=== PATIENT | female | born 1960 | race Caucasian/White ===

== ENCOUNTER 2017-12-25 19:59 | Emergency (ER) | payer BC ==
[2017-12-25 20:15] VITALS: BP 145/83
[2017-12-25] MEDS ORDERED: Ketorolac INJ* 60 MG/2 ML VIAL IM ONE (20:41)
[2017-12-25] MEDS ORDERED: Cyclobenzaprine TAB* 10 MG PO ONE (20:44)
--- NOTE | 2017-12-25 20:53 | UC ---
Back Pain HPI - HPI Summary HPI Summary: Complains of left lower back pain radiating into left buttock and posterior left leg starting last night. Pain worse with sitting, worse in the middle the night. Denies urinary retention, incontinence, trauma, fever, cough, sore throat, CP, SOB, N/V/D, abdominal pain, change in urine or BM, vaginal symptoms. Med history is HTN, DM. - History of Current Complaint Chief Complaint: UCBackPain Stated Complaint: BACK,HIP,LEG PAIN Time Seen by Provider: 12/25/17 20:24 Hx Obtained From: Patient Onset/Duration: Sudden Onset, Lasting Hours Timing: Constant Severity Initially: Mild Severity Currently: Moderate Pain Intensity: 6 Pain Scale Used: 0-10 Numeric Back Pain: Radiates To Character: Sharp, Aching Aggravating Factor(s): Other - Sitting Associated Signs And Symptoms: Positive: Negative - Allergies/Home Medications Allergies/Adverse Reactions: Allergies Allergy/AdvReac Type Severity Reaction Status Date / Time adhesive tape Allergy Severe HIVES, Verified 12/25/17 20:16 BLISTERS Sulfa (Sulfonamide Allergy Unknown Unknown Verified 12/25/17 20:16 Antibiotics) Reaction Details Home Medications: Home Medications Cholecalciferol TAB* [Vitamin D TAB*] 12/25/17 [History] Ibuprofen TAB* [Advil TAB*] 800 mg PO PRN 12/25/17 [History] Lisinopril TAB* [Prinivil TAB*] 10 mg PO DAILY 12/25/17 [History Confirmed 12/25] Potassium 99 mg PO DAILY 12/25/17 [History Confirmed 12/25/17] Sitagliptin/Metform 50/500(NF) [Janumet 50/500 (NF)] 12/25/17 [History Confirmed 12/25/17] Vitamin B Complex CAP* [B Complex CAP*] 1 cap PO DAILY 12/25/17 [History Confirmed 12/25/17] amLODIPine TAB* [Norvasc 5 mg TAB*] 20 mg PO DAILY 12/25/17 [History Confirmed 12/25/17] PMH/Surg Hx/FS Hx/Imm Hx Endocrine History: Diabetes Cardiovascular History: Hypertension - Surgical History Surgical History: Yes Surgery Procedure, Year, and Place: TWO FOOT SURGERIES, CHOLECYSTECTOMY - Family History Known Family History: Positive: Diabetes - Social History Alcohol Use: None Substance Use Type: None Smoking Status (MU): Never Smoked Tobacco Review of Systems Constitutional: Negative Skin: Negative Eyes: Negative ENT: Negative Respiratory: Negative Cardiovascular: Negative Gastrointestinal: Negative Genitourinary: Negative Motor: Negative Neurovascular: Negative Neurological: Negative Psychological: Negative Is Patient Immunocompromised?: No - DM All Other Systems Reviewed And Are Negative: Yes Physical Exam - Summary Physical Exam Summary: Tenderness to palpation along left gluteus and left posterior thigh. PMS intact distally. Triage Information Reviewed: Yes Appearance: Well-Appearing Vital Signs: Initial Vital Signs Temp 97.4 F 12/25/17 20:10 Pulse 58 12/25/17 20:10 Resp 16 12/25/17 20:10 BP 145/83 12/25/17 20:10 Pulse Ox 98 12/25/17 20:10 Vital Signs Reviewed: Yes Eye Exam: Normal ENT Exam: Normal Dental Exam: Normal Neck exam: Normal Respiratory Exam: Normal Cardiovascular Exam: Normal Abdominal Exam: Normal Musculoskeletal Exam: Normal Neurological Exam: Normal Psychological Exam: Normal Skin Exam: Normal Back Pain Course/Dx - Course Course Of Treatment: Complains of left lower back pain radiating into left buttock and posterior left leg starting last night. Pain worse with sitting, worse in the middle the night. Denies urinary retention, incontinence, trauma, fever, cough, sore throat, CP, SOB, N/V/D, abdominal pain, change in urine or BM , vaginal symptoms. Med history is HTN, DM. Exam:Tenderness to palpation along left gluteus and left posterior thigh. PMS intact distally. Vital signs normal. Symptoms consistent with sciatica. Started on Flexeril and Toradol here in the ED. Rx for Flexeril and ibuprofen. - Differential Dx/Diagnosis Provider Diagnoses: sciatica Discharge - Sign-Out/Discharge Documenting (check all that apply): Patient Departure - Discharge Plan Condition: Stable Disposition: HOME Prescriptions: Cyclobenzaprine TAB* [Flexeril 10 MG TAB*] 10 mg PO TID PRN #12 tab PRN Reason: Pain Ibuprofen TAB* [Motrin TAB* 800 MG] 800 mg PO Q6H 4 Days #16 tab Patient Education Materials: Sciatica (ED) Referrals: Chelo Mina [Primary Care Provider] - Additional Instructions: Follow-up with primary care. - Billing Disposition and Condition Condition: STABLE Disposition: Home
== END 2017-12-25 21:25 | disposition home or self-care (01) ==
LOC: UCEAST 19:59
DX: M54.42 Lumbago with sciatica, left side (principal); E11.9 Type 2 diabetes mellitus without complications; Z79.84 Long term (current) use of oral hypoglycemic drugs; I10 Essential (primary) hypertension; Z88.2 Allergy status to sulfonamides; Z91.048 Other nonmedicinal substance allergy status
CPT/HCPCS: 96372; 99202; A9270-GY; G0463; J1885

== ENCOUNTER 2018-05-16 15:00 | Emergency (ER) | payer BC ==
[2018-05-16 15:13] VITALS: BP 142/103
--- NOTE | 2018-05-16 16:23 | UC ---
Respiratory Complaint HPI - HPI Summary HPI Summary: 58-year-old female presents with concerns of persistent cough and shortness of breath. She was diagnosed with pneumonia at the [facility] urgent care 1 week ago. She was treated with a course of azithromycin, placed on a Medrol Dosepak , and provided an albuterol inhaler as needed. She states that she completed the antibiotics as prescribed as well as the Medrol Dosepak. She states her breathing improved greatly when she started the steroids however became increasingly worse as she tapered the dose down and then stopped. Notes cough is also worsens slightly becoming less productive and much "tighter". Denies fever, chills, chest pain, palpitations, wheezing, abdominal pain, nausea, or vomiting. - History of Current Complaint Chief Complaint: UCRespiratory Stated Complaint: URI Time Seen by Provider: 05/16/18 15:58 Hx Obtained From: Patient Hx Last Menstrual Period: na Pain Intensity: 8 - Allergies/Home Medications Allergies/Adverse Reactions: Allergies Allergy/AdvReac Type Severity Reaction Status Date / Time adhesive tape Allergy Severe HIVES, Verified 05/16/18 15:12 BLISTERS Sulfa (Sulfonamide Allergy Unknown Unknown Verified 05/16/18 15:12 Antibiotics) Reaction Details Home Medications: Home Medications Albuterol HFA INHALER* [Ventolin HFA Inhaler*] 1 puff INH Q6H PRN 05/16/18 [ History Confirmed 05/16/18] Fluconazole 150 MG TAB* [Diflucan 150 MG TAB*] 150 mg PO ONCE 05/16/18 [History Confirmed 05/16/18] PMH/Surg Hx/FS Hx/Imm Hx Endocrine History: Diabetes Cardiovascular History: Hypertension - Surgical History Surgical History: Yes Surgery Procedure, Year, and Place: TWO FOOT SURGERIES, CHOLECYSTECTOMY - Family History Known Family History: Positive: Unknown, Diabetes - Social History Alcohol Use: None Substance Use Type: None Smoking Status (MU): Never Smoked Tobacco Review of Systems All Other Systems Reviewed And Are Negative: Yes Constitutional: Negative: Fever, Chills Eyes: Negative: Drainage, Eye Redness ENT: Negative: Sore Throat, Ear Ache, Nasal Discharge, Sinus Congestion, Sinus Pain/Tenderness Respiratory: Positive: Shortness Of Breath, Cough Cardiovascular: Negative: Palpitations, Chest Pain Gastrointestinal: Negative: Abdominal Pain, Vomiting, Diarrhea, Nausea Genitourinary: Positive: Negative Musculoskeletal: Positive: Negative Neurological: Positive: Negative Is Patient Immunocompromised?: No Physical Exam - Summary Physical Exam Summary: GENERAL APPEARANCE: Well developed, well nourished, alert and cooperative, and appears to be in no acute distress. EYES: Conjunctiva clear. No drainage. Vision is grossly intact. EARS: External auditory canals and tympanic membranes clear, hearing grossly intact. NOSE: No nasal congestion or discharge. THROAT: Oral cavity and pharynx normal. No inflammation, swelling, exudate, or lesions. Teeth and gingiva in good general condition. NECK: Neck supple, non-tender without lymphadenopathy. CARDIAC: Normal S1 and S2. No S3, S4 or murmurs. Rhythm is regular. There is no peripheral edema, cyanosis or pallor. Extremities are warm and well perfused. Capillary refill is less than 2 seconds. LUNGS: Bilateral breath sounds slightly diminished but clear to auscultation without rales, rhonchi, or wheezing. Harsh, bronchospastic, non-productive cough. ABDOMEN: Positive bowel sounds. Soft, nondistended, nontender. No guarding or rebound. No masses or hepatosplenomegally. MUSKULOSKELETAL: ROM intact to all extremities. No joint erythema or tenderness. Normal muscular development. Normal gait. SKIN: Skin normal color, texture and turgor with no lesions or eruptions. Triage Information Reviewed: Yes Vital Signs: Initial Vital Signs Temp 98.0 F 05/16/18 15:09 Pulse 77 05/16/18 15:09 Resp 20 05/16/18 15:09 BP 142/103 05/16/18 15:09 Pulse Ox 98 05/16/18 15:09 Vital Signs Reviewed: Yes Diagnostic Evaluation - Laboratory O2 Sat by Pulse Oximetry: 98 Respiratory Course/Dx - Course Course Of Treatment: 58-year-old female presents with concerns of persistent cough and shortness of breath. She was diagnosed with pneumonia at the [facility] urgent care 1 week ago. She was treated with a course of azithromycin, placed on a Medrol Dosepak, and provided an albuterol inhaler as needed. She states that she completed the antibiotics as prescribed as well as the Medrol Dosepak. She states her breathing improved greatly when she started the steroids however became increasingly worse as she tapered the dose down and then stopped. Notes cough is also worsens slightly becoming less productive and much "tighter". Denies fever, chills, chest pain, palpitations, wheezing, abdominal pain, nausea, or vomiting. Exam revealed an adult female in no acute distress. She had some diminished breath sounds bilaterally with no wheezes, crackles, rhonchi, or stridor. Harsh, bronchospastic, nonproductive cough. Exam otherwise unremarkable. With the lack of fever and her having just completed the azithromycin 2 days ago I do not feel that additional antibiotics are warranted at this time. I do suspect that she is having some reactive airway disease and would benefit from a longer tapering course of steroids. Will place her on a prednisone taper over the next 12 days. She is to continue to use albuterol inhaler as needed. She is to follow-up with her primary care provider in 7 days for recheck of symptoms. Warning symptoms were reviewed with the patient and she verbalizes understanding and agrees with plan of care. - Differential Dx/Diagnosis Differential Diagnosis/HQI/PQRI: Bronchitis, Lower Resp Infection, Sinusitis Provider Diagnosis: Pneumonia Discharge - Sign-Out/Discharge Documenting (check all that apply): Patient Departure All imaging exams completed and their final reports reviewed: No Studies - Discharge Plan Condition: Stable Disposition: HOME Prescriptions: Benzonatate CAP* [Tessalon 100 MG CAP*] 100 mg PO TID PRN #30 cap PRN Reason: Cough predniSONE TAB* [Deltasone 10 MG TAB*] 10 mg PO DAILY #30 tab Patient Education Materials: Pneumonia (ED) Referrals: Chelo Fitzgerald QI SPECIALIST [Primary Care Provider] - 7 Days Additional Instructions: The antibiotic your were prescribed is a long-acting antibiotic and should still be in your system at this time. Without any fever I would not recommend adding as second antibiotic at this time. You had some diminished breath sounds and your cough is suggestive of some inflammation of the airways. I would recommend that we put you on a longer tapering dose of a steroid to help with the inflammation. Start prednisone 40 mg (4 tabs) once a day for 3 days, then 30 mg (3 tabs) daily for 3 days, then 20 mg (2 tabs) daily for 3 days, then 10 mg (1 tab) daily for 3 days then stop. Continue using the albuterol inhaler 2 puffs every 4-6 hours as needed for shortness of breath or wheezing. Take Tessalon Perles 1 cap every 8 hours as needed for cough. Follow up with your primary care provider in 7 days for recheck of your symptoms. Seek immediate medical attention in the emergency room if you develop fever greater than 100.5 F, have chest pain, worsening shortness of breath, become weak or dizzy, or have any worsening of symptoms. - Billing Disposition and Condition Condition: STABLE Disposition: Home
== END 2018-05-16 17:17 | disposition home or self-care (01) ==
LOC: UCEAST 15:00
DX: J18.9 Pneumonia, unspecified organism (principal); E11.9 Type 2 diabetes mellitus without complications; I10 Essential (primary) hypertension; Z88.2 Allergy status to sulfonamides; Z91.048 Other nonmedicinal substance allergy status
CPT/HCPCS: 99212; G0463

== ENCOUNTER 2018-06-25 08:28 | Emergency (ER) | payer BC ==
[2018-06-25 08:41] VITALS: BP 140/73
--- NOTE | 2018-06-25 11:18 | UC ---
Respiratory Complaint HPI - HPI Summary HPI Summary: 58 y/o female dx'd with PNA ~ 2 months ago, last seen 1/2 with continued cough, started on steroids x 12 days, patient states was improved, asymptomatic, states however noted increased cough several days ago, unable to take deep breath with sensation of "pneumonia coming back". States "i know my body i need antibiotics". was seen by PCP, felt lungs were clear, told to continue steroids. no fever, chills. no body aches. Denies chest pain, arm, jaw pain , denies heart symptoms. - History of Current Complaint Chief Complaint: UCRespiratory Stated Complaint: SOB CONGESTION Time Seen by Provider: 06/25/18 08:37 Hx Obtained From: Patient, Family/Master Chef - Hx Last Menstrual Period: na ?: No Onset/Duration: Gradual Onset, Lasting Weeks Severity Initially: Mild Severity Currently: Mild Pain Intensity: 3 Pain Scale Used: 0-10 Numeric Aggravating Factors: Deep Breaths - Allergies/Home Medications Allergies/Adverse Reactions: Allergies Allergy/AdvReac Type Severity Reaction Status Date / Time adhesive tape Allergy Severe HIVES, Verified 06/25/18 08:41 BLISTERS Sulfa (Sulfonamide Allergy Unknown Unknown Verified 06/25/18 08:41 Antibiotics) Reaction Details PMH/Surg Hx/FS Hx/Imm Hx Previously Healthy: No - h/o pna in past - Surgical History Surgical History: Yes Surgery Procedure, Year, and Place: TWO FOOT SURGERIES, CHOLECYSTECTOMY. cardiac cath - Family History Known Family History: Positive: Unknown, Diabetes - Social History Alcohol Use: None Substance Use Type: None Smoking Status (MU): Never Smoked Tobacco Review of Systems All Other Systems Reviewed And Are Negative: Yes Respiratory: Positive: Shortness Of Breath, Cough Is Patient Immunocompromised?: No Physical Exam Triage Information Reviewed: Yes Appearance: Well-Appearing, No Pain Distress, Well-Nourished Vital Signs: Initial Vital Signs Temp 98.1 F 06/25/18 08:35 Pulse 67 06/25/18 08:35 Resp 18 06/25/18 08:35 BP 140/73 06/25/18 08:35 Pulse Ox 97 06/25/18 08:35 Vital Signs Reviewed: Yes Eyes: Positive: Conjunctiva Clear ENT: Positive: Pharynx normal, TMs normal, Uvula midline. Negative: Sinus tenderness Neck: Positive: Supple, Nontender, No Lymphadenopathy Respiratory: Positive: Chest non-tender, Lungs clear, Normal breath sounds, No respiratory distress, No accessory muscle use. Negative: Respiratory distress, Crackles, Rhonchi, Stridor, Wheezing Cardiovascular: Positive: RRR, No Murmur Neurological Exam: Normal Skin Exam: Normal UC Diagnostic Evaluation - Laboratory O2 Sat by Pulse Oximetry: 97 Respiratory Course/Dx - Course Course Of Treatment: cxr- negative for acute disease, due to exam findings, clinical information, likely viral URI with cough, due to large amount of oral steroids recently, short course followed by inhaled steroids given. patient to follow up with PCP, patient states did not follow up with her PCP today bc she does not give out antibiotics. - Differential Dx/Diagnosis Differential Diagnosis/HQI/PQRI: Asthma, Bronchitis Provider Diagnosis: Viral URI Discharge - Sign-Out/Discharge Documenting (check all that apply): Patient Departure All imaging exams completed and their final reports reviewed: Yes - Discharge Plan Condition: Good Disposition: HOME Prescriptions: Beclomethasone 40 MCG MDI(NF) [Qvar 40 MCG MDI(NF)] 1 puff INH BID #1 mdi predniSONE [Prednisone 20 MG TAB] 20 mg PO SEE INSTRUCTIONS #4 tablet Patient Education Materials: Bronchospasm (ED) Referrals: Chelo Fitzgerald NP [Primary Care Provider] - Additional Instructions: - Steroid taper as directed- 06/25- 40mg 06/26- 20mg 06/27- 20mg - Use albuterol inhaler as needed for shortness of breath, cough - Begin Qvar inhaler today, continue 1 puff twice daily until symptoms improve, then taper down to once daily, then stop. Follow up with primary physician - REturn for fever, chills, chest pain, increased shortness of breath - Billing Disposition and Condition Condition: GOOD Disposition: Home
== END 2018-06-25 09:51 | disposition home or self-care (01) ==
LOC: UCEAST 08:28
DX: J06.9 Acute upper respiratory infection, unspecified (principal); Z87.01 Personal history of pneumonia (recurrent); Z91.09 Other allergy status, other than to drugs and biological substances; Z88.2 Allergy status to sulfonamides
CPT/HCPCS: 71046; 99212; G0463

== ENCOUNTER → 2019-05-10 13:44 | Day surgery (SDC) | payer BC, OTHER ==
[~2019-05-10 13:44] MED LIST: Buffered Lidocaine 1% SYRIN* 1 ML/SYRINGE INTRADERM ONE; Dexamethasone IV* 4 MG/ML 1 ML (4 MG) ONE; EPHEDrine (Pressors)* 50 MG/ML VIAL ONE; Famotidine IV* 10 MG/ML 2 ML (20 mg) IV ONE; Famotidine IV* 10 MG/ML 2 ML (20 mg) ONE; Ketorolac INJ* 30 MG/ML 1 ML VIAL ONE; Lactated Ringers 1000 ML Bag* 1,000 ML IV SCH; Levalbuterol 0.63MG/3ML NEB* UNIT OF USE INH PRN; Lidocaine 2% PF * 5 ML VIAL ONE; Midazolam* 1 MG/ML 5 ML VIAL (5 MG) ONE; Naloxone* 0.4 MG/ML 1 ML VIAL IV PRN; Ondansetron INJ* 2 MG/ML VIAL IV PRN; Ondansetron INJ* 2 MG/ML VIAL ONE; Propofol* 10 MG/ML 20 ML BTL ONE; fentaNYL* 50 MCG/ML 2 ML VIAL (100 MCG VIAL) IV PRN; fentaNYL* 50 MCG/ML 2 ML VIAL (100 MCG VIAL) ONE; oxyCODONE/Acetamin 5/325 MG* TAB PO PRN
[2019-05-10 19:22] VITALS: BP 136/98
--- NOTE | 2019-05-11 03:30 | OP ---
CC: [facility]* OPERATIVE REPORT: DATE OF OPERATION: 05/10/19 - [facility] DATE OF : 60 SURGEON: Rachele Boyce MD ANESTHESIOLOGIST: Dr. Rm. ANESTHESIA: LMA. PRE-OP DIAGNOSES: 1. Postmenopausal bleeding. 2. Endometrial polyp on biopsy. POST-OP DIAGNOSES: 1. Postmenopausal bleeding. 2. Endometrial polyp on biopsy. OPERATIVE PROCEDURE: Dilation, hysteroscopy, MyoSure polypectomy, curettage. ESTIMATED BLOOD LOSS: Less than 20 cc. SPECIMEN: Endometrial polyp and endometrial curettings. FLUIDS: Per Anesthesia. DRAINS: None. DEFICITS: 360 cc. FINDINGS: Midline uterus, large polyp from the anterior uterine wall. Both tubal ostia were visualized. No adnexal masses were palpated. There was a grade 2 to 3 cystocele and a grade 2 rectocele. COMPLICATIONS: None. COUNTS: Sponge, lap, and needle counts were correct x2. Uterus sounded to 11. The patient tolerated the procedure well and was brought to recovery room awake and in stable condition. DESCRIPTION OF PROCEDURE: The patient was brought to the operating room where general anesthesia was found to be adequate. The patient was prepped and draped in the usual sterile fashion in the dorsal lithotomy position. Time-out was performed. Exam under anesthesia was performed. Weighted speculum was placed in the vagina. The anterior lip of the cervix was grasped with a single- tooth tenaculum and the cervix was gently and easily dilated with graduated Dixon dilators. The MyoSure was introduced. A large polyp was seen originating from the anterior uterine wall down to the level of the internal os. The MyoSure LITE was used to remove the polyp in its entirety. Both tubal ostia were visualized and appeared normal. The MyoSure was removed. Curettage was performed. The endometrial polyp and endometrial curettings were sent to Pathology. The single- tooth tenaculum was removed from the anterior lip of the cervix. Excellent hemostasis was noted. All instruments were removed from the vagina and the patient was brought to the recovery room awake and in stable condition. [id number]/CPS #: [id number] MTDD
== END | disposition home or self-care (01) ==
LOC: OR 13:44
PROVIDERS: ATTEND Obstetrics & Gynecology
DX: N84.0 Polyp of corpus uteri (principal); N95.0 Postmenopausal bleeding; I10 Essential (primary) hypertension; E11.8 Type 2 diabetes mellitus with unspecified complications; Z79.84 Long term (current) use of oral hypoglycemic drugs; Z88.2 Allergy status to sulfonamides; Z90.49 Acquired absence of other specified parts of digestive tract
CPT/HCPCS: 88305; J1100; J1885; J2250; J2405; J2704; J3010